=== PATIENT | female | born 1950 | race African-American/Black ===

== ENCOUNTER 2018-06-24 13:53 | Emergency (ER) | payer MEDICARE, OTHER ==
[2018-06-24] MEDS ORDERED: Ketorolac Tromethamine 60 MG/2 ML VIAL ONE (14:39)
--- NOTE | 2018-06-24 14:40 | CT ---
HEAD CT WITHOUT CONTRAST: Date: 06/24/18 COMPARISON: None. HISTORY: Stabbing pain on left side of head. TECHNIQUE: Serial axial CT imaging obtained at 5 mm intervals from vertex through skull base without contrast. FINDINGS: Imaged paranasal sinuses/mastoid air cells are well aerated. No displaced calvarial fracture. No intr acranial hemorrhage, midline shift, mass effect, or ventricular enlargement. Multifocal dural calcifi cation noted. IMPRESSION: No acute findings. POS: [facility]
== END 2018-06-24 16:00 | disposition home or self-care (01) ==
LOC: MADERS 13:53
DX: R51 Headache (principal); I10 Essential (primary) hypertension; E11.9 Type 2 diabetes mellitus without complications; Z79.899 Other long term (current) drug therapy; Z79.4 Long term (current) use of insulin
CPT/HCPCS: 70450; 96372; J1885